=== PATIENT | male | born 1980 | race Caucasian/White ===

== ENCOUNTER 2020-11-08 22:32 | Emergency (ER) | payer SELFPAY ==
[~2020-11-08 22:32] MED LIST: LODINE CAP 300300 MG PO; OMNICEF 300 MG300 MG PO; TESSALON PERLE100 MG PO
[2020-11-09] MEDS ORDERED: LODINE CAP 300300 MG PO (00:45)
== END 2020-11-09 00:51 | disposition home or self-care (01) ==
LOC: ER1 22:32
DX: M25.511 Pain in right shoulder (principal); F17.210 Nicotine dependence, cigarettes, uncomplicated
CPT/HCPCS: 73030; 99283

== ENCOUNTER 2021-02-15 22:52 | Emergency (ER) | payer OTHER ==
[2021-02-15 23:30] LABS: HEMOGLOBIN 17.1 gm/dl (14.0-17.5); RED BLOOD COUNT 5.53 M/UL (4.20-5.50); WHITE BLOOD COUNT 9.1 K/UL (4.5-11.0)
[2021-02-15 23:53] LABS: BUN/CREATININE RATIO 13 (0-10)
[2021-02-17] MEDS ORDERED: HYDROCODON-ACE1 EAC4 PO (00:06)
== END 2021-02-16 01:03 | disposition left against medical advice (07) ==
LOC: ER1 22:52
PROVIDERS: Family Medicine
DX: R07.9 Chest pain, unspecified (principal); F10.10 Alcohol abuse, uncomplicated; Y90.9 Presence of alcohol in blood, level not specified; V49.40XA Driver injured in collision with unspecified motor vehicles in traffic accident, initial encounter; Y92.410 Unspecified street and highway as the place of occurrence of the external cause
CPT/HCPCS: 36415; 71045; 71260; 72125; 80053; 82550; 82553; 83874; 84484; 85025; 99285; Q9967

== ENCOUNTER 2021-02-16 19:01 | Emergency (ER) | payer OTHER ==
[2021-02-16 21:35] LABS: HEMOGLOBIN 17.1 gm/dl (14.0-17.5); RED BLOOD COUNT 5.51 M/UL (4.20-5.50); WHITE BLOOD COUNT 10.3 K/UL (4.5-11.0)
[2021-02-16 22:06] LABS: BUN/CREATININE RATIO 14 (0-10)
[2021-02-17] MEDS ORDERED: HYDROCODON-ACE1 EAC4 PO (00:06)
== END 2021-02-17 00:17 | disposition home or self-care (01) ==
LOC: ER1 19:01
PROVIDERS: Family Medicine
DX: R07.2 Precordial pain (principal); F17.200 Nicotine dependence, unspecified, uncomplicated; Z88.6 Allergy status to analgesic agent
CPT/HCPCS: 71045; 80048; 82550; 82553; 83874; 84484; 85025; 93005; 99285